=== PATIENT | female | born 1980 | race Caucasian/White ===

== ENCOUNTER 2022-01-27 18:33 | Emergency (ER) | payer MEDICAID | END 2022-01-27 19:58 | disposition home or self-care (01) | LOC: JP.ED 18:33 | DX: T81.31XA Disruption of external operation (surgical) wound, not elsewhere classified, initial encounter (principal); T81.40XA Infection following a procedure, unspecified, initial encounter; L03.90 Cellulitis, unspecified; Z72.0 Tobacco use; Z79.899 Other long term (current) drug therapy | CPT/HCPCS: 99283 ==

== ENCOUNTER 2022-05-16 16:02 | Emergency (ER) | payer MEDICARE, MEDICAID | END 2022-05-16 17:17 | disposition home or self-care (01) | LOC: JP.ED 16:02 | DX: T81.30XA Disruption of wound, unspecified, initial encounter (principal); I10 Essential (primary) hypertension; K21.9 Gastro-esophageal reflux disease without esophagitis; E11.9 Type 2 diabetes mellitus without complications; F17.210 Nicotine dependence, cigarettes, uncomplicated; E66.9 Obesity, unspecified; Z68.34 Body mass index [BMI] 34.0-34.9, adult | CPT/HCPCS: 99283 ==